=== PATIENT | female | born 1985 | race Hispanic/Latino ===

== ENCOUNTER 2017-09-29 14:49 | Emergency (ER) | payer OTHER ==
[2017-09-29] MEDS ORDERED: NEOMY/POLY/HC 1% OTIC DROPS ONE (15:27)
[2017-09-29] MEDS ORDERED: HYDROCODONE/APAP 10/325 TAB ONE (15:27)
[2017-09-29] MEDS ORDERED: KETOROLAC 30 MG/ML INJ ONE (15:28)
--- NOTE | 2017-09-29 15:58 | ER ---
Nurse's Notes [facility] Name: Lisa Vo Age: 32 yrs Sex: Female : 1985 Arrival Date: 09/29/2017 Time: 14:49 Bed 7 Private MD: Diagnosis: Otitis media, unspecified, left ear Presentation: 09/29 15:03 Presenting complaint: Patient states: Left ear pain for 2 weeks. Given Ciprodex 10 days aj ago and cefdnir 3 days ago. Patient states, "I see a nurse practitioner and she can't prescribe pain medication." Patient denies taking OTC pain medication today. Transition of care: patient was not received from another setting of care. Onset of symptoms was September 19, 2017. Care prior to arrival: None. 15:03 Method Of Arrival: Ambulatory aj 15:03 Acuity: LOYD 5 aj Triage Assessment: 15:05 General: Appears in no apparent distress. uncomfortable, Behavior is calm, cooperative, aj appropriate for age. Pain: Complains of pain in left ear Pain currently is 10 out of 10 on a pain scale. EENT: Reports pain in left ear. EENT: Reports. Neuro: Level of Consciousness is awake, alert, obeys commands, Oriented to person, place, time, situation. Respiratory: Airway is patent Trachea midline Respiratory effort is even, unlabored, Respiratory pattern is regular, symmetrical. Derm: Skin is intact, is healthy with good turgor, Skin is pink, warm \\T\\ dry. normal. 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 - Social history:: Smoking status: Patient/guardian denies using tobacco. Screenin:37 Abuse screen: Denies threats or abuse. Denies injuries from another. Nutritional ph screening: No deficits noted. Tuberculosis screening: No symptoms or risk factors identified. Fall Risk None identified. Assessment: 15:36 General: Appears in no apparent distress. uncomfortable, Behavior is calm, cooperative, ph appropriate for age. Pain: Complains of pain in left ear. Neuro: Level of Consciousness is awake, alert, obeys commands, Oriented to person, place, time, situation. Cardiovascular: Capillary refill < 3 seconds Patient's skin is warm and dry. Respiratory: Airway is patent Respiratory effort is even, unlabored. EENT: Reports pain in left ear. Derm: Skin is intact, Skin is pink, warm \\T\\ dry. Musculoskeletal: Circulation, motion, and sensation intact. Range of motion: intact in all extremities. Vital Signs: 15:05 BP 138 / 91; Pulse 94; Resp 16; Temp 98.0; Pulse Ox 99% on R/A; Weight 74.84 kg; Height aj 5 ft. 6 in. (167.64 cm); Pain 10/10; 15:05 Body Mass Index 26.63 (74.84 kg, 167.64 cm) ED Course: 14:49 Patient arrived in ED. as 15:05 Triage completed. aj 15:05 Arm band placed on right wrist. Patient placed in waiting room, Patient notified of wait time. 15:14 Leandra Lynn FNP-C is PHCP. snw 15:14 Phani Mena MD is Attending Physician. snw 15:18 Isela Ruffin, YESI is Primary Nurse. ph 15:38 Patient has correct armband on for positive identification. Bed in low position. Call ph light in reach. Side rails up X 1. Pulse ox on. NIBP on. Warm blanket given. 15:41 No provider procedures requiring assistance completed. Patient did not have IV access ph during this emergency room visit. Administered Medications: 15:30 Drug: [place] 10 mg-325 mg 1 tabs Route: PO; ph 16:00 Follow up: Response: No adverse reaction ph 15:30 Drug: TORadol 60 mg Route: IM; Site: left deltoid; ph 16:00 Follow up: Response: No adverse reaction ph 15:40 Drug: Cortisporin Drops 4 drops Route: Otic; Site: left ear; ph 19:41 Follow up: Response: No adverse reaction ph Outcome: 15:57 Discharge ordered by . snw 16:04 Discharged to home ambulatory, with family. hb 16:04 Condition: stable 16:04 Discharge instructions given to patient, family, Instructed on discharge instructions, follow up and referral plans. medication usage, Demonstrated understanding of instructions, follow-up care, medications, Prescriptions given X 1. 16:04 Patient left the ED. hb Signatures: Brigitte Angulo RN RN Leandra Cabrera, PHOTOGRAPHER LITHOGRAPHIC-C PHOTOGRAPHER LITHOGRAPHIC-Csnw Sri Guerrero Patricia, RN RN Gabrielle Marquez RN RN hb
--- NOTE | 2017-09-29 15:58 | EDPHYS ---
Physician Documentation [facility] Name: Lisa Vo Age: 32 yrs Sex: Female : 1985 Arrival Date: 09/29/2017 Time: 14:49 Bed 7 Private MD: ED Physician Phani Mena HPI: 09/29 15:27 This 32 yrs old Female presents to ER via Ambulatory with complaints of Ear snw Pain. 15:27 The patient presents with pain, swelling, tenderness. The complaints affect the left snw ear. Onset: The symptoms/episode began/occurred 2 week(s) ago, and became worse and became persistent. Associated signs and symptoms: Pertinent positives: hearing loss, pain. Severity of symptoms: At their worst the symptoms were moderate severe. It is unknown whether or not the patient has had similar symptoms in the past. The patient has been recently seen by a physician: the patient's primary care provider, with similar presenting complaints, and apparently given a diagnosis of otitis externa. + severe pain to left ear. 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 - Social history:: Smoking status: Patient/guardian denies using tobacco. ROS: 15:26 Constitutional: Negative for fever, chills, and weight loss, Eyes: Negative for injury, snw pain, redness, and discharge, Neck: Negative for injury, pain, and swelling, Cardiovascular: Negative for chest pain, palpitations, and edema, Respiratory: Negative for shortness of breath, cough, wheezing, and pleuritic chest pain, Abdomen/GI: Negative for abdominal pain, nausea, vomiting, diarrhea, and constipation, Back: Negative for injury and pain, : Negative for injury, bleeding, discharge, and swelling, MS/Extremity: Negative for injury and deformity, Skin: Negative for injury, rash, and discoloration, Neuro: Negative for headache, weakness, numbness, tingling, and seizure. 15:26 ENT: Positive for ear pain. Exam: 15:25 Constitutional: This is a well developed, well nourished patient who is awake, alert, snw and in no acute distress. Head/Face: Normocephalic, atraumatic. Eyes: Pupils equal round and reactive to light, extra-ocular motions intact. Lids and lashes normal. Conjunctiva and sclera are non-icteric and not injected. Cornea within normal limits. Periorbital areas with no swelling, redness, or edema. Neck: Trachea midline, no thyromegaly or masses palpated, and no cervical lymphadenopathy. Supple, full range of motion without nuchal rigidity, or vertebral point tenderness. No Meningismus. Chest/axilla: Normal chest wall appearance and motion. Nontender with no deformity. No lesions are appreciated. Cardiovascular: Regular rate and rhythm with a normal S1 and S2. No gallops, murmurs, or rubs. Normal PMI, no JVD. No pulse deficits. Respiratory: Lungs have equal breath sounds bilaterally, clear to auscultation and percussion. No rales, rhonchi or wheezes noted. No increased work of breathing, no retractions or nasal flaring. Abdomen/GI: Soft, non-tender, with normal bowel sounds. No distension or tympany. No guarding or rebound. No evidence of tenderness throughout. Back: No spinal tenderness. No costovertebral tenderness. Full range of motion. Skin: Warm, dry with normal turgor. Normal color with no rashes, no lesions, and no evidence of cellulitis. MS/ Extremity: Pulses equal, no cyanosis. Neurovascular intact. Full, normal range of motion. Neuro: Awake and alert, GCS 15, oriented to person, place, time, and situation. Cranial nerves II-XII grossly intact. Motor strength 5/5 in all extremities. Sensory grossly intact. Cerebellar exam normal. Normal gait. 15:25 ENT: Ear canal(s): purulent discharge, that is moderate, in the left canal, Nose: is normal, Mouth: is normal, Dental exam: normal. Vital Signs: 15:05 BP 138 / 91; Pulse 94; Resp 16; Temp 98.0; Pulse Ox 99% on R/A; Weight 74.84 kg; Height aj 5 ft. 6 in. (167.64 cm); Pain 10/10; 15:05 Body Mass Index 26.63 (74.84 kg, 167.64 cm) aj MDM: 15:14 Patient medically screened. snw 15:59 Data reviewed: vital signs, nurses notes. Data interpreted: Pulse oximetry: on room air snw is 99 %. Interpretation: normal. Counseling: I had a detailed discussion with the patient and/or guardian regarding: the historical points, exam findings, and any diagnostic results supporting the discharge/admit diagnosis, the presence of at least one elevated blood pressure reading (>120/80) during this emergency department visit, the need for outpatient follow up, to return to the emergency department if symptoms worsen or persist or if there are any questions or concerns that arise at home. Special discussion: Based on the history and exam findings, there is no indication for further emergent testing or inpatient evaluation. I discussed with the patient/guardian the need to see the ENT specialist for further evaluation of the symptoms. I discussed with the patient/guardian the need to see the primary care provider for further evaluation of the symptoms. Administered Medications: 15:30 Drug: [place] 10 mg-325 mg 1 tabs Route: PO; ph 16:00 Follow up: Response: No adverse reaction ph 15:30 Drug: TORadol 60 mg Route: IM; Site: left deltoid; ph 16:00 Follow up: Response: No adverse reaction ph 15:40 Drug: Cortisporin Drops 4 drops Route: Otic; Site: left ear; ph 19:41 Follow up: Response: No adverse reaction ph Disposition: 09/30 08:05 Co-signature as Attending Physician, Phani Mena MD I agree with the assessment and wa plan of care. Disposition: 09/29/17 15:57 Discharged to Home. Impression: Otitis media, unspecified, left ear. - Condition is Stable. - Discharge Instructions: Otitis Externa, Mastoiditis, Pediatric, Ear Drops, Adult, [id number]. - Prescriptions for Tylenol- Codeine #3 300-30 mg Oral Tablet - take 2 tablets by ORAL route every 6 hours As needed; 20 tablet. - Medication Reconciliation Form, Thank You Letter, Antibiotic Education, Prescription Opioid Use form. - Follow up: Private Physician; When: 2 - 3 days; Reason: Recheck today's complaints, Continuance of care, Re-evaluation by your physician. Follow up: Emergency Department; When: As needed; Reason: Worsening of condition. - Notes: Please continue cefdinir. Signatures: Brigitte Angulo RN RN aj Therrien, Shelly, RAMAN-C ENGAGEMENT LEAD-Fadiw Isela Ruffin RN RN Gabrielle Louis RN RN [facility] MD MD [place]
== END 2017-09-29 16:04 | disposition home or self-care (01) ==
LOC: ER 14:49
DX: H66.92 Otitis media, unspecified, left ear (principal); J45.909 Unspecified asthma, uncomplicated; Z88.0 Allergy status to penicillin
CPT/HCPCS: 96372; 99283